=== PATIENT | male | born 1990 | race Caucasian/White ===

== ENCOUNTER 2019-07-16 12:49 | Emergency (ER) | payer SELFPAY ==
[2019-07-16 12:54] VITALS: BP 141/76; PULSE 69; RESP 17; TEMP 37.2; O2SAT 96; BMI 36.5
[2019-07-16] MEDS: tetanus-dipt-pertussis 0.5 mL SDV IM (13:08)
--- NOTE | 2019-07-16 13:17 | W.ED.WOUNDLC ---
HPI - Wound/Laceration General: Chief Complaint: Wound/Laceration Stated Complaint: RIGHT SIDE HAND LAC Time Seen by Provider: 07/16/19 12:50 Source: patient Mode of arrival: ambulatory Limitations: no limitations History of Present Illness: HPI narrative: Patient is a 28-year-old male who presents to ED today with complaints of a laceration on his right wrist. Patient states he cut it on a portion of a vehicle. Unknown when his last tetanus was. Onset (ago): hour(s) Extremity Location: Right: wrist Place: work Patient tetanus UTD: No Context: accidental Associated symptoms: Reports no associated symptoms Review of Systems Musc: Denies: neck pain, back pain, extremity pain or joint pain Skin/Breast: Reports: other (laceration) PFSH ED PFSH: Social History Smoking and tobacco status: current every day smoker Physical Exam Const: COMMON NORMALS: no apparent distress, average body habitus, oriented x3, no limitations, healthy appearing, alert and well nourished Extremity: OTHER: small 1.5cm U shaped laceration on ulnar aspect of R wrist; very shallow; more of a flap laceration; no bleeding; NV intact Neuro: COMMON NORMALS: oriented x3 SENSORIUM/ORIENTATION: Yes alert Skin: OTHER: see extremity assessment Procedures Laceration Laceration 1: Site: upper extremity Side (If applicable): right Size (cm): 1.5 Description: flap Depth: simple, single layer Local Anesthetic: lidocaine 1% and with epi Amount of anesthesia used (mL): 1.0 Pre-repair: wound explored and irrigated extensively Skin layer closed with: nylon Size (cm): 4-0 Number of sutures: 4 Technique: simple, interrupted Course Vital Signs: Vital signs: Vital Signs Temperature 98.9 F 07/16/19 12:54 Pulse Rate 69 07/16/19 12:54 Respiratory Rate 17 07/16/19 12:54 Blood Pressure 141/76 07/16/19 12:54 Pulse Oximetry 96 07/16/19 12:54 Discharge Plan Discharge Patient Disposition: Home, Self-Care Clinical Impression: Laceration Condition: Stable Discharge Orders: Discharge Order (Routine); Ordered 07/16/19 Ordered By: Camila Hernandez Referrals: Meghna Esquivel DO [Primary Care Provider] - Discharge Diet: Usual diet Discharge Activity: Resume usual activity Patient Instructions: Suture Care (ED), Laceration (ED) Activity Restrictions/Additional Instructions: You may return to work. Keep sutures clean with warm soap and water several times daily. Sutures can be cut out in 7 days. Seek medical attention for redness, swelling, drainage, or other signs of infection. Coding Level of Care Code ED Learning Support Resource Room Teacher for Arabella Roach
[2019-07-16 13:59] VITALS: BP 131/76; PULSE 70; RESP 16; O2SAT 96
== END 2019-07-16 13:59 | disposition home or self-care (01) ==
LOC: ER 13:31
PROVIDERS: Emergency Provider Physician Assistant; Family Provider Family Medicine; PCP Family Medicine
DX: S61.511A Laceration without foreign body of right wrist, initial encounter (principal); W26.8XXA Contact with other sharp object(s), not elsewhere classified, initial encounter; F17.210 Nicotine dependence, cigarettes, uncomplicated; Z23 Encounter for immunization
CPT/HCPCS: 12001; 12345; 90471; 90715; 99281; 99282; J2001

== ENCOUNTER 2019-12-07 15:27 | Emergency (ER) | payer SELFPAY ==
[2019-12-07 15:27] VITALS: BP 146/76; PULSE 89; RESP 18; TEMP 36.9; O2SAT 96; BMI 38.0
--- NOTE | 2019-12-07 15:34 | W.ED.EXTPRO ---
HPI - Extremity Problem General: Chief complaint: Extremity Problem,Nontraumatic Stated complaint: right hand finger swelling Time Seen by Provider: 12/07/19 15:33 History of Present Illness: HPI Narrative: Patient is a 28-year-old male who comes to the ED with right middle finger swelling. 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 Ever since then he has had right finger swelling with some pain and a blister. Denies any other trauma or injury to finger. Associated symptoms: Deny chest pain, fever(s) or rash Review of Systems Const: Denies: fever(s), chills or fatigue Eyes: Denies: change in vision or eye discomfort ENMT: Denies: throat pain, odynophagia, nasal discharge or nasal congestion Card: Denies: chest pain, palpitations, edema, swelling of feet/ankles, dyspnea on exertion or orthopnea Resp: Denies: dyspnea, productive cough or non-productive cough GI: Denies: abdominal pain, nausea, vomiting, diarrhea, constipation or hematochezia : Denies: flank pain, difficulty urinating, dysuria or hematuria Musc: Denies: neck pain, back pain or extremity swelling Skin/Breast: Reports: erythema and new lesions (blister); Denies: rash Neuro: Denies: headache(s), numbness in extremities or weakness in extremities PFS ED PFSH: Social History Smoking and tobacco status: current every day smoker Physical Exam Const: COMMON NORMALS: no acute distress, patient oriented x3 and alert GENERAL APPEARANCE: cooperative and comfortable HENMT: COMMON NORMALS: normocephalic HEAD & SCALP: normocephalic MOUTH: Normal oral and palatal mucosa present THROAT: posterior oropharynx normal and uvula midline Neck/C-Spine: COMMON NORMALS: supple GENERAL: Yes normal visual inspection Resp: COMMON NORMALS: normal respiratory effort, No retractions, No use of accessory muscles and clear to auscultation bilaterally AUSCULTATION: clear to auscultation bilaterally Cardio: COMMON NORMALS: regular rate, regular rhythm, S1 normal heart sound present, S2 normal heart sound present, No gallops present (Cardio), No clicks present (Cardio), No murmurs present (Cardio) and Peripheral pulses 2+ throughout RATE: regular rate RHYTHM: regular rhythm HEART SOUNDS: S1 normal heart sound present and S2 normal heart sound present PERIPHERAL PULSES: Peripheral pulses 2+ throughout GI: COMMON NORMALS: Normal to inspection, nondistended, normoactive bowel sounds present, Soft to palpation, non-tender and no masses PALPATION: Yes Soft to palpation : COMMON NORMALS: Yes no CVA tenderness BLADDER/KIDNEY EXAM: Yes no CVA tenderness Back/Pelvis: COMMON NORMALS: no CVA tenderness Extremity: NARRATIVE EXTREMITY EXAM: Patient's right hand middle finger has some erythema and warmth. On the pad of middle finger is a fluid-filled blister that resembles blistering from thermal burn. Patient appears to have a thermal burn on middle finger with some erythema and warmth of the middle finger as well. GENERAL: Yes normal exam except as noted Neuro: COMMON NORMALS: patient oriented x3 and moves all extremities SENSORIUM/ORIENTATION: Yes alert Skin: NARRATIVE SKIN EXAM: Patient's right hand middle finger has some erythema and warmth. On the pad of middle finger is a fluid-filled blister that resembles blistering from thermal burn. Patient appears to have a thermal burn on middle finger with some erythema and warmth of the middle finger as well. GENERAL SKIN EXAM: dry skin Course Vital Signs: Vital signs: Vital Signs Temperature 98.5 F 12/07/19 15:27 Pulse Rate 89 12/07/19 15:27 Respiratory Rate 18 12/07/19 15:27 Blood Pressure 146/76 12/07/19 15:27 Pulse Oximetry 96 12/07/19 15:27 MDM - Extremity (Nontraumatic) MDM Narrative: Medical decision making narrative: Patient is a 28-year-old male comes to the ED with swelling and on right middle finger. 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 Upon examination he has a blister with some erythema and warmth of the middle finger. It appears he has a thermal burn blister with some possible infection starting due to the erythema and warmth throughout his middle finger. Patient was put on a prescription of Bactrim and told to leave the blister alone and to not pop it. Let blister pop naturally. Also they will be put triple antibiotic ointment on the blister and apply it after it pops as well. Return to ED precautions given. Follow-up with PCP in 7 to 10 days. Patient understood and agreed with plan. Discharge Plan Discharge Patient Disposition: Home Clinical Impression: Thermal burn Condition: Stable Prescriptions: New Bactrim DS 800-160 mg tablet 1 tab PO BID 5 Days Qty: 10 RF: 0 Triple Antibiotic 3.5mg-400 unit- 5,000 unit/gram ointment 1 applic TOPICAL BID Qty: 9 RF: 0 Discharge Orders: Discharge Order (Routine); Ordered 12/07/19 Ordered By: Ganesh Byrd Referrals: Meghna Esquivel DO [Primary Care Provider] - Discharge Diet: Regular Discharge Activity: Resume usual activity Patient Instructions: Thermal Reyes Activity Restrictions/Additional Instructions: Follow-up with medical provider as directed in 7-10 days. Take medications as prescribed. Do not pop blister and allow blister to pop on its own. Apply triple antibiotic ointment over blister to prevent infection. Take ibuprofen or Tylenol for pain. Return to the ER or your medical provider if condition worsens. Please read and understand discharge instructions. If any questions, please ask. Coding Level of Care Code ED Marine Resource Economist for Arabella Fwd Exam Comprehensive
[2019-12-07 15:50] VITALS: BP 145/85; PULSE 117; RESP 14; O2SAT 96
== END 2019-12-07 15:51 | disposition home or self-care (01) ==
PROVIDERS: Emergency Provider Physician Assistant; PCP Family Medicine
DX: T23.021A Burn of unspecified degree of single right finger (nail) except thumb, initial encounter (principal); X10.2XXA Contact with fats and cooking oils, initial encounter; F17.210 Nicotine dependence, cigarettes, uncomplicated
CPT/HCPCS: 12345; 99281

== ENCOUNTER 2019-12-09 10:40 | Emergency (ER) | payer SELFPAY ==
[2019-12-09 10:58] VITALS: BP 135/67; PULSE 75; RESP 14; TEMP 36.8; O2SAT 100; BMI 38.0
[2019-12-09] MEDS: HYDROcodone-acetaminophen 5-325 mg Tablet 1 TAB PO (12:44)
[2019-12-09] MEDS: lidocaine 1% INJ 20 mL INTRADERMA (12:44)
[2019-12-09 13:26] VITALS: BP 141/98; PULSE 61; RESP 14; O2SAT 98
--- NOTE | 2019-12-09 13:27 | W.ED.WOUNDLC ---
HPI - Wound/Laceration General: Chief Complaint: Wound/Laceration Stated Complaint: FINGER INFECTION Time Seen by Provider: 12/09/19 12:27 History of Present Illness: HPI narrative: Patient seen previously here in the ER for finger infection that is now worsened. Has swelling to the right middle finger red and tender has not improved but actually worsened not sure what caused infection first place Associated symptoms: Denies chills or fever(s) Review of Systems Const: Denies: fever(s) or chills Musc: Reports: extremity pain (Right middle finger known injury) and extremity swelling Psych: Denies: anxiety or depression PFSH ED PFSH: Social History Smoking and tobacco status: current every day smoker Physical Exam Const: COMMON NORMALS: no acute distress Extremity: RIGHT UPPER EXTREMITY: Yes hand & digits (Right middle finger obviously swollen distal aspect very tender to touch has areas of pus underneath the skin) Psych: COMMON NORMALS: mental status grossly normal Procedures Abscess I/D Site: hand Side (if applicable): right Local Anesthetic: lidocaine 1% Amount of anesthesia used (mL): 2 Technique: incised with #11 blade Amount of fluid expressed (mL): 2 Irrigation: Yes Packing used?: none Complications: pain and other (At first I thought I felt felt a foreign body in there but after cleaning the wound and exploring the wound I did not feel that any more did retrieve a large amount of pus out of the wound patient felt much better 10 procedure) Course Vital Signs: Vital signs: Vital Signs Temperature 98.2 F 12/09/19 10:58 Pulse Rate 61 12/09/19 13:26 Respiratory Rate 14 12/09/19 13:26 Blood Pressure 141/98 12/09/19 13:26 Pulse Oximetry 98 12/09/19 13:26 Discharge Plan Discharge Patient Disposition: Home Clinical Impression: Abscess Condition: Stable Prescriptions: New levofloxacin 500 mg tablet 500 mg PO DAILY 7 Days Qty: 7 RF: 0 hydrocodone-acetaminophen 5-325 mg tablet 1 tab PO Q6H PRN (Reason: pain) Qty: 14 RF: 0 Discontinued sulfamethoxazole-trimethoprim [Bactrim DS] 800-160 mg tablet 1 tab PO BID 5 Days Qty: 10 RF: 0 No Action Triple Antibiotic 3.5mg-400 unit- 5,000 unit/gram ointment 1 applic TOPICAL BID Qty: 9 RF: 0 Discharge Orders: Discharge Order (Routine); Ordered 12/09/19 Ordered By: Jaylen Willson Referrals: Meghna Esquivel DO [Primary Care Provider] - Discharge Diet: Usual diet Discharge Activity: Increase activity as tolerated Patient Instructions: Abscess Incision and Drainage (ED) Activity Restrictions/Additional Instructions: Follow-up with medical provider as directed. Take medications as prescribed. Return to the ER or your medical provider if condition worsens. Please read and understand discharge instructions. If any questions ask please. Stand Alone Forms: Work/School Release Discharge Date/Time: 12/09/19 13:29 Coding Level of Care Code ED Wire Winding Machine Operator for Chg Fwd Exam Expanded Problem Focused
== END 2019-12-09 13:29 | disposition home or self-care (01) ==
PROVIDERS: Emergency Provider Nurse Practitioner Family; PCP Family Medicine
DX: L02.511 Cutaneous abscess of right hand (principal); F17.210 Nicotine dependence, cigarettes, uncomplicated
CPT/HCPCS: 10060; 12345; 26010; 87070; 87077; 87186; 96372; 99282

== ENCOUNTER 2020-02-02 18:37 | Emergency (ER) | payer SELFPAY ==
[2020-02-02 19:08] VITALS: BP 136/77; PULSE 70; RESP 14; TEMP 36.4; O2SAT 98; BMI 31.9
--- NOTE | 2020-02-02 20:54 | ED_ITS ---
HPI - Wound/Laceration General: Chief Complaint: Wound/Laceration Stated Complaint: Cut on Rt hd Time Seen by Provider: 02/02/20 19:31 Source: patient Mode of arrival: ambulatory Limitations: no limitations History of Present Illness: HPI narrative: A 9-year-old male patient presents to the emergency department with laceration to the right index finger. He reports cut his finger with a knife while cooking dinner. Onset (ago): minute(s) (4:30 pm) Place: home Context: accidental Associated symptoms: Denies chills, fever(s), nausea or vomiting Treatments prior to arrival: bandage Review of Systems General: Reports: 10 or more systems reviewed and unremarkable except in HPI and below Const: Denies: fever(s), chills or diaphoresis Eyes: Denies: blurry vision or eye redness ENMT: Denies: throat pain, dental pain or disequilibrium Card: Denies: chest pain, palpitations or irregular heart rhythm Resp: Denies: dyspnea, productive cough, non-productive cough or wheezing GI: Denies: abdominal pain, nausea or vomiting : Denies: dysuria Musc: Denies: back pain Skin/Breast: Reports: other (Laceration right index finger); Denies: rash or pruritus Neuro: Denies: headache(s), weakness in extremities or behavioral changes Psych: Denies: anxiety or depression Alvaro/Lymph: Denies: easy bruising PFSH ED PFSH: Social History Smoking and tobacco status: current every day smoker Physical Exam Const: COMMON NORMALS: no acute distress, patient oriented x3, healthy appearing and alert GENERAL APPEARANCE: cooperative, comfortable and well hydrated HENMT: COMMON NORMALS: normocephalic, Normal external nose present and moist oral mucous membranes HEAD & SCALP: normocephalic NOSE: Normal external nose present Eye: COMMON NORMALS: Equal, round and reactive pupils present and EOMs intact bilaterally GENERAL EYE: appearance normal, both eyes and all related structures PUPIL: Yes Equal, round and reactive pupils present Neck/C-Spine: COMMON NORMALS: full ROM and no lymphadenopathy GENERAL: Yes normal visual inspection and Yes trachea midline CERVICAL SPINE: Yes cervical ROM normal Lymph: LYMPHATIC: no lymphadenopathy noted Chest: COMMONS NORMALS: normal inspection of the chest Resp: COMMON NORMALS: normal respiratory effort and clear to auscultation bilaterally AUSCULTATION: clear to auscultation bilaterally Cardio: COMMON NORMALS: regular rhythm, S1 normal heart sound present and S2 normal heart sound present RHYTHM: regular rhythm HEART SOUNDS: S1 normal heart sound present and S2 normal heart sound present GI: COMMON NORMALS: Soft to palpation and non-tender INSPECTION: Yes normal to inspection PALPATION: Yes Soft to palpation : COMMON NORMALS: Yes no CVA tenderness BLADDER/KIDNEY EXAM: Yes no CVA tenderness Back/Pelvis: COMMON NORMALS: no CVA tenderness and thoracic and lumbar spine normal to inspection Extremity: COMMON NORMALS: normal to inspection, full ROM and capillary refill normal GENERAL: Yes normal exam except as noted Neuro: COMMON NORMALS: patient oriented x3 and no focal motor deficits SENSORIUM/ORIENTATION: Yes alert Psych: COMMON NORMALS: mental status grossly normal, Normal thought process present and cooperative ACTIVITY/MOTOR BEHAVIOR: Yes appropriate eye contact THOUGHT PROCESS: Normal thought process present Skin: COMMON NORMALS: no rashes or lesions noted and turgor normal GENERAL SKIN EXAM: no rashes or lesions noted and turgor normal TRAUMA: laceration (Index finger right, tendon function intact) linear (2 cm), involves subcutaneous tissue, motor nerve function intact and sensation intact; not actively bleeding and not contaminated Procedures Laceration Laceration 1: Site: other (Right index finger) Side (If applicable): right Size (cm): 2 Description: linear and clean Depth: simple, single layer Pre-repair: wound explored, irrigated extensively, deep structures intact and extensive debridement Skin layer closed with: nylon Size (cm): 3-0 Number of sutures: 3 Nerve Block Nerve Block 1: Time out performed: Yes Local Anesthetic: lidocaine 1% Amount of anesthesia used (mL): 5 Side: right Nerve Blocks: digital (Right index finger) Procedure Successful: Yes Patient Tolerated Procedure: well Complications: none Course Vital Signs: Vital signs: Vital Signs Temperature 97.5 F L 02/02/20 19:08 Pulse Rate 67 02/02/20 21:08 Respiratory Rate 16 02/02/20 21:08 Blood Pressure 121/87 02/02/20 21:08 Pulse Oximetry 99 02/02/20 21:08 Discharge Plan Discharge Patient Disposition: Home Clinical Impression: Laceration Condition: Stable Prescriptions: No Action hydrocodone-acetaminophen 5-325 mg tablet 1 tab PO Q6H PRN (Reason: pain) Qty: 14 RF: 0 Triple Antibiotic 3.5mg-400 unit- 5,000 unit/gram ointment 1 applic TOPICAL BID Qty: 9 RF: 0 Discharge Orders: Discharge Order (Routine); Ordered 02/02/20 Ordered By: Ofe Romero Referrals: Meghna Esquivel DO [Primary Care Provider] - Discharge Diet: Usual diet Discharge Activity: Limit activity as instructed Patient Instructions: Suture Care (ED), Laceration (ED) Activity Restrictions/Additional Instructions: Monitor wound for signs and symptoms of infection, keep wound dry for the first 2 to 3 days, may cleanse with soap and water and pat dry, do not submerge in water, do not place wound in lakes or river. Sutures out in 7 days Keep the wound covered while working Return to the emergency department if you develop increased pain, fever, red streaking from the wound or other concerning symptoms of infection Stand Alone Forms: Work/School Release Coding Level of Care Code ED Event Specialist Product Demonstrator for Arabella Fwtoby Exam Comprehensive
[2020-02-02 21:08] VITALS: BP 121/87; PULSE 67; RESP 16; O2SAT 99
== END 2020-02-02 21:09 | disposition home or self-care (01) ==
PROVIDERS: Emergency Provider Nurse Practitioner Family; PCP Family Medicine
DX: S61.220A Laceration with foreign body of right index finger without damage to nail, initial encounter (principal); W26.0XXA Contact with knife, initial encounter; Y93.G3 Activity, cooking and baking
CPT/HCPCS: 12041; 12345; 99281

== ENCOUNTER 2020-03-22 22:03 | Inpatient (IN) | payer SELFPAY ==
[2020-03-22 22:09] VITALS: BP 161/93; PULSE 75; RESP 18; TEMP 36.7; O2SAT 96; BMI 25.8
--- NOTE | 2020-03-22 22:22 | W.ED.PSYCH ---
HPI - Psych General: Chief Complaint: Psychiatric Symptoms Stated Complaint: mhe/96 Time Seen by Provider: 03/22/20 22:07 Source: patient Mode of arrival: ambulatory Limitations: no limitations History of Present Illness: HPI Narrative: 29-year-old male that was brought here by family for hallucinations history of bipolar and depression. He had stated to them that he no longer wants to live. Patient has been just laying around over the last 10 days and will hardly eat or she. He states that he does have a history of bipolar and has not been taking his meds. Patient here is very flat affect and tearful. He will hardly speak to me after asking multiple questions. Associated symptoms: Reports visual hallucinations and depression Review of Systems Const: Denies: fever(s), chills, body aches or change in appetite Eyes: Denies: blurry vision or eye discomfort ENMT: Denies: throat pain or dental pain Card: Denies: chest pain Resp: Denies: dyspnea GI: Denies: abdominal pain, nausea, vomiting or diarrhea : Denies: dysuria Musc: Denies: neck pain or back pain Skin/Breast: Denies: rash Neuro: Denies: headache(s) Psych: Reports: depression and visual hallucinations Alvaro/Lymph: Denies: easy bruising All/Imm: Denies: urticaria PFSH ED PFSH: Social History Smoking and tobacco status: current every day smoker Physical Exam Const: COMMON NORMALS: patient oriented x3 GENERAL APPEARANCE: not cooperative HENMT: COMMON NORMALS: normocephalic and atraumatic HEAD & SCALP: normocephalic and atraumatic Eye: COMMON NORMALS: Equal, round and reactive pupils present and EOMs intact bilaterally PUPIL: Yes Equal, round and reactive pupils present Neck/C-Spine: COMMON NORMALS: full ROM and supple Chest: COMMONS NORMALS: normal inspection of the chest and normal palpation of entire chest wall Resp: COMMON NORMALS: normal respiratory effort, No retractions, No use of accessory muscles and clear to auscultation bilaterally AUSCULTATION: clear to auscultation bilaterally Cardio: COMMON NORMALS: regular rate, regular rhythm and No murmurs present (Cardio) RATE: regular rate RHYTHM: regular rhythm GI: COMMON NORMALS: Normal to inspection, nondistended, normoactive bowel sounds present, Soft to palpation, non-tender and no masses PALPATION: Yes Soft to palpation Extremity: COMMON NORMALS: normal to inspection and full ROM Neuro: COMMON NORMALS: patient oriented x3, moves all extremities and no focal motor deficits Psych: COMMON NORMALS: negative for cooperative ACTIVITY/MOTOR BEHAVIOR: Yes disorganized behavior MOOD & AFFECT: Yes depressed mood and Yes tearful Skin: COMMON NORMALS: no rashes or lesions noted and no wounds GENERAL SKIN EXAM: no rashes or lesions noted MDM - Psych MDM Narrative: Medical decision making narrative: Bryant presents here with acute psychosis along with depression. He had made some suicidal statements. Here he has a very flat affect and does not give me much history at all. Family states he has been saying he wants to anything he has been hearing things. He does have a history of bipolar has not been taking his meds. I placed him under 96 as I feel he is not safe on his own and will admit to the psych unit. Patient is medically cleared and I spoke to the psychiatrist. Lab Data: Labs: Lab Results 03/22/20 03/22/20 03/22/20 Range/Units 22:20 22:30 22:30 WBC 17.8 H (4.0-10.0) 10^3/ uL RBC 5.88 H (4.1-5.3) 10^6/u L Hgb 17.8 H (11.7-16.6) g/dL Hct 52.6 H (42.0-52.0) % MCV 89.5 (80-94) fL MCH 30.3 (28.0-34.0) pg MCHC 33.8 (30.0-36.0) g/dL RDW 12.5 (12.1-15.1) % Plt Count 254 (130-400) 10^3/c mm MPV 12.1 H (7.4-10.4) fL Neut % (Auto) 75.5 % Lymph % (Auto) 17.5 % Harvey % (Auto) 5.3 % Eos % (Auto) 0.9 % Baso % (Auto) 0.4 % Neut # (Auto) 13.43 H (1.8-7.7) 10^3/u L Lymph # (Auto) 3.1 (0.8-4.8) 10^3/u L Harvey # (Auto) 1.0 H (0.2-0.9) 10^3/u L Eos # (Auto) 0.2 (0.0-0.8) 10^3/u L Baso # (Auto) 0.1 (0.0-0.1) 10^3/u L Nucleated RBC % (a uto) 0 % Nucleated RBCs # 0.0 /100WBC Sodium 140 (136-145) mmol/L Potassium 3.3 L (3.5-5.1) mmol/L Chloride 101 (98-107) mmol/L Carbon Dioxide 25 (22-29) mmol/L Anion Gap 17.3 (5-19) BUN 13 (6-20) mg/dL Creatinine 0.7 (0.7-1.2) mg/dL GFR Calculation 135.3 H (90-130) mL/min Glucose 101 (65-115) mg/dL Calculated Osmolal ity 290 (285-295) mOsm/k g Calcium 10.0 (8.5-10.5) mg/dL Total Bilirubin 1.4 H (0.15-1.2) mg/dL AST 11 (0-40) U/L ALT 18 (0-41) U/L Alkaline Phosphata se 81 (40-130) IU/L Total Protein 7.9 (6.6-8.7) g/dL Albumin 4.8 (3.5-5.2) g/dL Globulin 3.1 (1.3-4.6) g/dL Salicylates < 0.3 L (3-10) mg/dL Urine Opiates Scre en Negative (Negative) ng/mL Acetaminophen < 5.0 L (10-30) ug/mL Ur Barbiturates Sc reen Negative (Negative) ng/mL Ur Phencyclidine S crn Negative (Negative) ng/mL Ur Amphetamines Sc reen Negative (Negative) ng/mL U Benzodiazepines Scrn Negative (Negative) ng/mL Urine Cocaine Scre en Negative (Negative) ng/mL U Marijuana (THC) Screen Positive H (Negative) ng/mL Ethyl Alcohol < 10 (0-10) mg/dL Discharge Plan Discharge Patient Disposition: Admitted As Inpatient Clinical Impression: Depression, Acute psychosis Condition: Stable Coding Level of Care Code ED Arch Support Technician for g Fwd Exam Comprehensive
[2020-03-22] MEDS: LORazepam 2 mg Tablet PO (22:26)
[2020-03-22 22:44] LABS: Basophils # 0.1 10^3/uL (0.0-0.1); Basophils % 0.4 %; Eosinophils # 0.2 10^3/uL (0.0-0.8); Eosinophils % 0.9 %; Hematocrit 52.6 % (42.0-52.0); Hemoglobin 17.8 g/dL (11.7-16.6); Lymphocytes # 3.1 10^3/uL (0.8-4.8); Lymphocytes % 17.5 %; Mean Corpuscular HGB Conc 33.8 g/dL (30.0-36.0); Mean Corpuscular Hemoglobin 30.3 pg (28.0-34.0); Mean Corpuscular Volume 89.5 fL (80-94); Mean Platelet Volume 12.1 fL (7.4-10.4); Monocytes % 5.3 %; Neutrophils # 13.43 10^3/uL (1.8-7.7); Neutrophils % 75.5 %; Nucleated Red Blood Cells % 0 %; Platelet Count 254 10^3/cmm (130-400); Red Blood Count 5.88 10^6/uL (4.1-5.3); Red Cell Distribution Width 12.5 % (12.1-15.1); White Blood Count 17.8 10^3/uL (4.0-10.0)
[2020-03-22 22:46] LABS: Amphetamines Screen Urine Negative (Negative); Barbiturates Screen Urine Negative (Negative); Benzodiazepines Screen Urine Negative (Negative); Cocaine Screen Urine Negative (Negative); Opiate Screen Urine Negative (Negative); PCP Screen Urine Negative (Negative); THC Screen Urine Positive (Negative)
[2020-03-22 22:59] LABS: Alanine Aminotransferase 18 U/L (0-41); Albumin Level 4.8 g/dL (3.5-5.2); Alkaline Phosphatase 81 IU/L (40-130); Anion Gap 17.3 (5-19); Aspartate Amino Transferase 11 U/L (0-40); Blood Urea Nitrogen 13 mg/dL (6-20); Carbon Dioxide 25 mmol/L (22-29); Chloride 101 mmol/L (98-107); Globulin 3.1 g/dL (1.3-4.6); Glomerular Filtration Rate 135.3 mL/min (90-130); Glucose 101 mg/dL (65-115); Osmolality Calculated 290 mOsm/kg (285-295); Potassium 3.3 mmol/L (3.5-5.1); Sodium 140 mmol/L (136-145); Total Bilirubin 1.4 mg/dL (0.15-1.2); Total Protein 7.9 g/dL (6.6-8.7)
[2020-03-22 23:02] LABS: Acetaminophen < 5.0 ug/mL (10-30); Alcohol Level < 10 mg/dL (0-10); Salicylate < 0.3 mg/dL (3-10)
[2020-03-22 23:34] VITALS: BP 141/90; PULSE 86; RESP 16; TEMP 36.7; O2SAT 97
[2020-03-22 23:38] LABS: Blood Urine Neg (Negative); Glucose Urine UA Norm (Normal); Ketones Urine 1+ (Negative); Protein Urine Neg (Negative); Specific Gravity, Urine 1.015 (1.005-1.030); Urine Appearance Clear (CLEAR); Urine Color Dark Yellow (Yellow)
[2020-03-22 23:39] LABS: Add Urine Microscopic? YES; Bacteria Urine TRACE /hpf; Bilirubin Urine Neg (Negative); Leukocyte Esterase Urine Negative (Negative); Nitrate Urine Negative (Negative); Squamous Epithelial Cell Urine 0-4 /hpf (0-5); Urobilinogen Urine 4 mg/dL (Negative)
[2020-03-22 23:40] LABS: Add Urine Culture? No; Mucus Urine 4+ /hpf
[2020-03-22 23:41] VITALS: BP 118/78; PULSE 80; RESP 18; TEMP 37.2; O2SAT 98
[2020-03-23 05:48] VITALS: BP 108/56; PULSE 77; RESP 18; TEMP 37.1; O2SAT 95
[2020-03-23 14:00] VITALS: BP 129/73; PULSE 83; RESP 20; TEMP 37; O2SAT 92
--- NOTE | 2020-03-23 18:40 | PM.NHP ---
Providers/Chief Complaint Admitting Physician: Sai Miranda MD Primary Care Provider: Meghna Esquivel DO Chief Complaint: mhe/poss 96 HPI NPU History of Present Illness Bryant Ramos is a 29 year old male who presented to the emergency department with the following report: Chief Complaint: Psychiatric Symptoms Stated Complaint: mhe/96 Time Seen by Provider: 03/22/20 22:07 Source: patient Mode of arrival: ambulatory Limitations: no limitations History of Present Illness: HPI Narrative: 29-year-old male that was brought here by family for hallucinations history of bipolar and depression. He had stated to them that he no longer wants to live. Patient has been just laying around over the last 10 days and will hardly eat or she. He states that he does have a history of bipolar and has not been taking his meds. Patient here is very flat affect and tearful. He will hardly speak to me after asking multiple questions. Associated symptoms: Reports visual hallucinations and depression. He was admitted to the neuropsychiatric unit for definitive treatment of those issues. He presented today as a fairly limited historian reflecting back on his previous hospitalization endorsing that not much is changed.. 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 He was resistant to the idea of medication. And could not recall the medication that he had been on. We discussed the risk benefits and alternatives of him restarting an antipsychotic and he understood and agreed to proceed as is documented in this note. We reported was that previously on what ever he was taking which he could not recall he gained weight and did not feel that was extremely effective. We discussed the possibility of Rashmi and Mal in consideration of greater weight neutrality but also discussed Invega because like Rashmi he would have the opportunity to have an injection and not have to worry about choosing to take or not take the medication. He endorsed struggling with social settings but was not clear as to whether he felt he could get another job at this point. We discussed the fact that if he was wanting to be a cook that the job opportunities for [facility] [employer] certainly has limitations. An excerpt of his February 09, 2017 hospitalization is included for historical context. [place] [facility] [place] History of Present Illness Date of Service: Feb 09, 2017 Chief Complaint: I actually just came back from [facility]. I got out of [facility]. HPI: HPI: The patient is a 26-year-old male admitted for psychosis on a 96 hour hold. Patient's family reported that he has been employed at [employer] but found working at [employer] and has been asked to leave from that establishment. He has been talking on a broken cell phone and making statements about going back in time. He has been showering with his clothing on and wrapping of various household items and T-shirts giving them to his family as Tee gifts. Family reported that they have been watching him and do not feel he has been using any drugs. The patient was confused and bizarre in the ER requesting to be cut open and stating that he wanted to donate his organs to his mother. He was given a B-52 for agitation. Since admission the patient has continued to be bizarre doing high kicks/karate kicks and jumps in the hallway and stretching his legs on the nursing station ledge. The patient has poor insight into his behaviors and reports that he is in the hospital because I have a flesh wound on the back of my knee and reports that he has been exercising to get blood flow back. This provider examine the back of his knee which appears to be normal with no signs of wound or infection. The patient reports also that he recently broke up with his fiancee which has been stressful and has moved back in with his parents. He reports that they want him to get help for anger management . The patient appears euthymic to happy and denies feeling angry or having any aggressive thoughts or behaviors however. Psychiatric review of systems: Reports mood has been lively, pretty happy. Denies depression/ anhedonia/ SI. Denies HI. Denies hallucinations/ paranoia. He does endorse some somatic hypervigilance/delusions and states that he is pretty sure I had stomach ulcers and also feels that he needs surgery to have his appendix and gallbladder checked out. He does not know why. He also reports that his eyes are very sensitive to light and that he is having hearing problems. He does not have any apparent hearing issues during the interview however. He reports that he has been sleeping and eating ok. He denies any irritability/risky behaviors/decreased need for sleep. He has set some increased goal-directed activity and distractibility. He does not have any pressured speech. He denies any significant anxiety. Past psychiatric history: Denies past psychiatrist/ psych admission/ past meds/SA. Past medical history: reports hearing problems and eyes sensitive to light but these are not apparent. Reports possible hx seizures while using meth. Denies history of head injuries or surgeries. Family history: Mother- mental illness? Social history: Single, employed FT at [employer] and lives with parents. Has 3 children who live in [facility] with ex-GF. Pt reports past meth last 3.5 months, past injection use. Denies other drugs. Denies bath salts. alcohol- denies. Smokes 1PPD. On probation for domestic assault. Dropped out 11th grade, denies LD/ BD. Meds NPU Home Medications Medication Instructions Recorded Confirmed Last Taken Type No Known Home Medications 03/23/20 03/23/20 Unknown History Allergies Allergy/AdvReac Type Severity Reaction Status Date / Time No Known Allergies Allergy Verified 07/16/19 12:54 PFSH NPU PFSH: Social History Smoking and tobacco status: current every day smoker Mental Status Exam MSE Comments: This is a well-nourished well-developed white male in hospital scrubs with limited grooming and eye contact. No abnormal movements except for psychomotor retardation. Semicooperative with exam in mild to moderate distress. Speech was limited and decreased rate and volume. Mood described as depressed, affect odd. Thought process mostly organized with some significant thought blocking. Thought content: Patient was seemingly ambivalent about suicidality but probably said no, he denied homicidal ideation, there were no delusions reported but significant paranoia noted, he denies any auditory or visual hallucinations but again hedged took a long time answering that question and at times did appear to be attending to internal stimuli. Attention and concentration were limited and memory was also somewhat limited but none were formally tested. He is alert and oriented x3. Insight and judgment are limited and impulse control is impaired. Vitals/I&O/Wt Last Vital Signs Temp 98.8 F 03/23/20 22:00 Pulse 70 03/23/20 22:00 Resp 15 03/23/20 22:00 BP 143/74 03/23/20 22:00 Pulse Ox 94 03/23/20 22:00 Weight last 48 hrs Weight 77.111 kg Data NPU : 03/22/20 22:30 03/22/20 22:30 A&P Assessment and plan (1) Cannabis abuse: Status: Acute (2) Depression: Status: Acute (3) Acute psychosis: Status: Acute Additional A&P Information This is a 29-year-old white male with a long history of psychotic symptoms as well as depression and active addiction with some question of recent methamphetamine use who presents with thought disorder. 1. Continue current medication. We will review his charts try to make a decision between the possible antipsychotics given his concerns and past use of Risperdal. 2. Continue to the minute checks for safety. 3. Encourage individual, group and milieu therapies. 4. Encourage sober living treatment after discharge at the highest level of care to which he is willing to commit. Involuntary Hold Information 96 Hour Hold: 96 Hour Involuntary Admission: Yes 96 Hour Hold Ending Date: 03/26/20 96 Hour Hold Ending Time: 22:34 Attestations NPU Medical Necessity Statement*: Inpatient hospitalization is medically necessary and the clinically appropriate intervention at this time. We will monitor medications and make changes as indicated. Patient will be in the hospital for overnight. Likely length of stay 3 to 5 days. Coding Level of Care Code Acute Files Supervisor for Arabella Roach Diagnoses Cannabis abuse F12.10 Depression F32.9 Acute psychosis F23
[2020-03-23 22:00] VITALS: BP 143/74; PULSE 70; RESP 15; TEMP 37.1; O2SAT 94
[2020-03-24 06:00] VITALS: BP 128/73; PULSE 83; RESP 19; TEMP 36.6; O2SAT 97
--- NOTE | 2020-03-24 11:10 | PC.RESP ---
Smoking Cessation information sent to patient.
[2020-03-24] MEDS: ARIPiprazole 10 mg Tablet PO (13:07)
[2020-03-24 14:00] VITALS: BP 131/75; PULSE 72; RESP 18; TEMP 36.7; O2SAT 97
--- NOTE | 2020-03-24 17:51 | PM.NPN ---
Subjective NPU Subjective: Interval history: Bryant presents today reporting that he is unsure what he wants to do. His presentation was quite odd as his initial statement to this scientific technical writer was that he did not want me wasting my time. When I sat down to try to get at the heart of what his concerns were he does a lot of rocking and appearing like he was going to say something but said very few words with clearly distressed but nothing that was raised elicited a response to give any clear indication as to what he was suffering about or from. He gave indication that he really did not want to take the Abilify but could not give me any articulation of why the Abilify did not suit him especially given only 1 dose at this point. I reviewed that Invega and Geodon with both be viable options we discussed the possibility of holding his dose tomorrow and changing the medication but he really could not see the rest of we have allowed us to have a clear sense of how we should proceed. Mental Status Exam MSE Comments: This is a well-nourished well-developed white male in hospital scrubs with limited grooming and eye contact. No abnormal movements except for psychomotor retardation. Semicooperative with exam in mild to moderate distress. Speech was limited and decreased rate and volume. Mood described as you should not waste her time with me, affect odd. Thought process mostly organized with some significant thought blocking. Thought content: Patient did not answer questions about suicidality, he denied homicidal ideation, there were no delusions reported but significant paranoia noted, he denies any auditory or visual hallucinations but again hedged took a long time answering that question and at times did appear to be attending to internal stimuli. Attention and concentration were limited and memory was also somewhat limited but none were formally tested. He is alert and oriented x3. Insight and judgment are impaired and impulse control is impaired. Vitals/I&O/Wt Last Vital Signs Temp 98.8 F 03/24/20 20:13 Pulse 82 03/24/20 20:13 Resp 17 03/24/20 20:13 BP 154/83 03/24/20 20:13 Pulse Ox 94 03/24/20 20:13 Data NPU : 03/22/20 22:30 03/22/20 22:30 A&P Additional A&P Information (1) Cannabis abuse: (2) Depression: (3) Acute psychosis: This is a 29-year-old white male with a long history of psychotic symptoms as well as depression and active addiction with some question of recent methamphetamine use who presents with thought disorder. 1. Continue current medication. We started Abilify today, however he seems to be expressing that he does not want to take it for some reason but his inability to have clear expression makes the decision a little more challenging. We will hold the morning dose and speak to him before administration to see if he would prefer something different and try to identify the reason for his reticence to take the medication. 2. Continue to the minute checks for safety. 3. Encourage individual, group and milieu therapies. 4. Encourage sober living treatment after discharge at the highest level of care to which he is willing to commit. Involuntary Hold Information 96 Hour Hold: 96 Hour Involuntary Admission: Yes 96 Hour Hold Ending Date: 03/26/20 96 Hour Hold Ending Time: 22:34 Attestations NPU Medical Necessity Statement*: Inpatient hospitalization is medically necessary and the clinically appropriate intervention at this time. We will monitor medications and make changes as indicated. Likely length of stay 2-4 is days. Coding Level of Care Code Acute Notched Blade Loader for Arabella Roach
[2020-03-24 20:13] VITALS: BP 154/83; PULSE 82; RESP 17; TEMP 37.1; O2SAT 94
[2020-03-25 05:59] VITALS: BP 137/88; PULSE 89; RESP 18; TEMP 37.8; O2SAT 97
[2020-03-25] MEDS: ARIPiprazole 10 mg Tablet PO (08:23)
[2020-03-25 14:00] VITALS: BP 103/72; PULSE 98; RESP 18; TEMP 36.1; O2SAT 95
--- NOTE | 2020-03-25 18:51 | P.PN_ITS ---
Subjective NPU Subjective: Interval history: Bryant presented today continuing to be somewhat reticent to speak which it was unclear whether this was resistance or thought blocking or a little bit of both. Continue to connect with his significant other as she expresses extreme concern about him coming home and reporting that he had close to 2 weeks of significant change in energy level not eating bathing or sleeping well. Discussed the possibility of an 21-day hold with him. He continues to isolate and sleep a considerable bit per staff. Mental Status Exam MSE Comments: This is a well-nourished well-developed white male in hospital scrubs with limited grooming and eye contact. No abnormal movements except for psychomotor retardation. Semicooperative with exam in mild to moderate distres s. Speech was limited and decreased rate and volume. Mood described as fine, affect odd. Thought process mostly organized with some significant thought blocking. Thought content: Patient did not answer questions about suicidality, he denied homicidal ideation, there were no delusions reported but significant paranoia noted, he denies any auditory or visual hallucinations but again hedged took a long time answering that question and at times did appear to be attending to internal stimuli. Attention and concentration were limited and memory was also somewhat limited but none were formally tested. He is alert and oriented x3. Insight and judgment are impaired and impulse control is impaired. Vitals/I&O/Wt Last Vital Signs Temp 98.1 F 03/25/20 20:10 Pulse 76 03/25/20 20:10 Resp 19 H 03/25/20 20:10 BP 127/75 03/25/20 20:10 Pulse Ox 96 03/25/20 20:10 Data NPU : 03/22/20 22:30 03/22/20 22:30 A&P Additional A&P Information (1) Cannabis abuse: (2) Depression: (3) Acute psychosis: This is a 29-year-old white male with a long history of psychotic symptoms as well as depression and active addiction with some question of recent methamphetamine use who presents with thought disorder. 1. Continue current medication. 2. Continue to the minute checks for safety. 3. Encourage individual, group and milieu therapies. 4. Encourage sober living treatment after discharge at the highest level of care to which he is willing to commit. Involuntary Hold Information 2 96 Hour Hold: 96 Hour Involuntary Admission: Yes 96 Hour Hold Ending Date: 03/26/20 96 Hour Hold Ending Time: 22:34 Attestations NPU Medical Necessity Statement*: Inpatient hospitalization is medically necessary and the clinically appropriate intervention at this time. We will monitor medications and make changes as indicated. Likely length of stay 3-5days. Coding Level of Care Code Acute Applications Development Consultant for Arabella Roach
[2020-03-25 20:10] VITALS: BP 127/75; PULSE 76; RESP 19; TEMP 36.7; O2SAT 96
[2020-03-26 06:00] VITALS: BP 131/82; PULSE 71; RESP 16; TEMP 37.3; O2SAT 97
[2020-03-26] MEDS: ARIPiprazole 10 mg Tablet PO (08:28)
[2020-03-26 14:00] VITALS: BP 109/65; PULSE 86; RESP 18; TEMP 36.2; O2SAT 97
--- NOTE | 2020-03-26 19:25 | P.PN_ITS ---
Subjective NPU Subjective: Interval history: Bryant presents today continuing his pattern of left connection and speaking and seeming to be irritable or angry but not articulating his thoughts with words. We discussed the possibility of adding Geodon or changing over to Geodon including the risks, benefits and alternatives and he understood and continued to be fairly nonfocal. I advised him that I would make it available tomorrow and he could choose at that time whether he thought it was a good idea or not. Mental Status Exam MSE Comments: This is a well-nourished well-developed white male in hospital scrubs with limited grooming and eye contact. No abnormal movements except for psychomotor retardation. Semicooperative with exam in mild to moderate distress. Speech was limited and decreased rate and volume. Mood described as i can go home, affect odd. Thought process mostly organized with some significant thought blocking. Thought content: Patient did not answer questions about suicidality, he denied homicidal ideation, there were no delusions reported but significant paranoia noted, he denies any auditory or visual hallucinations but again hedged took a long time answering that question and at times did appear to be attending to internal stimuli. Attention and concentrati on were limited and memory was also somewhat limited but none were formally tested. He is alert and oriented x3. Insight and judgment are impaired and impulse control is impaired. Vitals/I&O/Wt Last Vital Signs Temp 97.1 F L 03/26/20 14:00 Pulse 86 03/26/20 14:00 Resp 18 03/26/20 14:00 BP 109/65 03/26/20 14:00 Pulse Ox 97 03/26/20 14:00 Data NPU : 03/22/20 22:30 03/22/20 22:30 A&P Additional A&P Information (1) Cannabis abuse: (2) Depression: (3) Acute psychosis: This is a 29-year-old white male with a long history of psychotic symptoms as well as depression and active addiction with some question of recent methamphe tamine use who presents with thought disorder. 1. Continue current medication. Will offer Geodon 20 mg p.o. twice daily with meals tomorrow. 2. Continue to the minute checks for safety. 3. Encourage individual, group and milieu therapies. 4. Encourage sober living treatment after discharge at the highest level of care to which he is willing to commit. Involuntary Hold Information 96 Hour Hold: 96 Hour Involuntary Admission: Yes 96 Hour Hold Ending Date: 03/26/20 96 Hour Hold Ending Time: 22:34 Attestations NPU Medical Necessity Statement*: Inpatient hospitalization is medically necessary and the clinically appropriate intervention at this time. We will monitor medications and make changes as indicated. Likely length of stay 3-5 days. Follow 21-day paperwork today and advise patient of that plan. Coding Level of Care Code Acute Pulp Press Tender for Arabella Roach
[2020-03-26 19:51] VITALS: BP 136/72; PULSE 86; RESP 19; TEMP 37.5; O2SAT 94
--- NOTE | 2020-03-26 21:45 | PC.NURSE ---
PM assessment V/s stable, Heart and lung sounds normal. Pt denies AH/VH/SI/HI. Pt Denies pain. Pt reports sleep that is not restful, racing thoughts, and panic feelings. Pt refuses to take medications for sleep and increased anxiety at this time. He did come out of his room to get a glass of water, a journal, and bible to read. He was more interactive with nurse this evening and spoke to family on the phone today.
[2020-03-27 06:00] VITALS: BP 111/74; PULSE 70; RESP 17; TEMP 36.9; O2SAT 97
[2020-03-27] MEDS: ARIPiprazole 10 mg Tablet PO (08:21)
--- NOTE | 2020-03-27 12:31 | P.PN_ITS ---
Subjective NPU Subjective: Interval history: Bryant continues to struggle with his ability to communicate and his desire to stay. He continues to be seemingly only capable of endorsing a desire to leave but not really be able to talk about the medication or how they are having or what he does not like one versus the other. We discussed the risk benefits and alternatives of starting Geodon and he understood and accepted its initiation but again could not really get into a real conversation in general but he appeared to understand and agreed to proceed as is documented in this note. Mental Status Exam MSE Comments: This is a well-nourished well-developed white male in hospital scrubs with limited grooming and eye contact. No abnormal movements except for psychomotor retardation. Semicooperative with exam in mild to moderate distress. Speech was limited and decreased rate and volume. Mood described as I feel worse here, affect odd. Thought process mostly organized with some significant thought blocking. Thought content: Patient did not answer questions about suicidality, but did report I will be fine , he denied homicidal ideation, there were no delusions reported but significant paranoia noted, he denies any auditory or visual hallucinations but again hedged took a long time answering that question and at times did appear to be attending to internal stimuli. Attention and concentration were limited and memory was also somewhat limited but none were formally tested. He is alert and oriented x3. Insight and judgment are impaired and impulse control is impaired. Vitals/I&O/Wt Last Vital Signs Temp 98.4 F 03/27/20 06:00 Pulse 70 03/27/20 06:00 Resp 17 03/27/20 06:00 BP 111/74 03/27/20 06:00 Pulse Ox 97 03/27/20 06:00 Data NPU : 03/22/20 22:30 03/22/20 22:30 A&P Additional A&P Information (1) Cannabis abuse: (2) Depression: (3) Acute psychosis: This is a 29-year-old white male with a long history of psychotic symptoms as well as depression and active addiction with some question of recent methamphetamine use who presents with thought disorder. 1. Continue current medication. Started Geodon 20 mg p.o. twice daily with meals. We will consider discontinuing of the Abilify tomorrow. 2. Continue to the minute checks for safety. 3. Encourage individual, group and milieu therapies. 4. Encourage sober living treatment after discharge at the highest level of care to which he is willing to commit. Involuntary Hold Information 96 Hour Hold: 96 Hour Involuntary Admission: Yes 96 Hour Hold Ending Date: 03/26/20 96 Hour Hold Ending Time: 22:34 Attestations NPU Medical Necessity Statement*: Inpatient hospitalization is medically necessary and the clinically appropriate intervention at this time. We will monitor medications and make changes as indicated. Likely length of stay 4-6 days. 21- day paperwork was filed. Coding Level of Care Code Acute Community Health Coordinator for Arabella Roach
[2020-03-27] MEDS: ziprasidone hcl 20 mg Capsule PO ×2 (13:20→17:21)
[2020-03-27 14:00] VITALS: BP 112/76; PULSE 82; RESP 18; TEMP 36.8
[2020-03-27 20:11] VITALS: BP 126/81; PULSE 94; RESP 18; TEMP 36.9; O2SAT 95
--- NOTE | 2020-03-27 21:43 | PC.NURSE ---
PM ASSESSMENT PT DENIES HI/SI, DENIES AH/VH. REPORTS INCREASING STIFFNESS IN HIS BACK. PT HAS ISOLATED SELF TO HIS BED AND REFUSES TO INTERACT WITH OTHER PATIENTS. PT STATED THAT HE HAS HAD A GOOD DAY BUT IS NOT RESTING WHEN HE SLEEPS. PT HEART/LUNG SOUNDS ARE NORMAL.PT FOLLOWED NURSE TO NURSES STATION FOR WATER. HE IS QUIET AND COOPERATIVE WITH STAFF. PT ASKS/ANSWERS QUESTIONS APPROPRIATELY. PT'S FIANCE IS CONCERNED THAT MEDICATION IS NOT WORKING FAST ENOUGH AND HIS NEEDS ARE NOT BEING MET. SHE IS VERY INVESTED IN HIS MENTAL HEALTH AND IS NOT COPING WELL WITH HIM IN THIS UNIT. PT IS EXPERIENCING PANIC, FEELINGS OF FEAR, AND ANGER. HE IS NOT RESTING ALTHOUGH HE IS SLEEPING.
[2020-03-27 23:31] VITALS: BP 150/100; PULSE 75; RESP 17; TEMP 37.9; O2SAT 100
[2020-03-28 05:48] VITALS: BMI 25.8
[2020-03-28 06:00] VITALS: BP 152/62; PULSE 75; RESP 17; TEMP 36.4; O2SAT 96
--- NOTE | 2020-03-28 06:24 | PC.NURSE ---
Increased B/P Pt has had increase of blood pressure. Last night @2200 pt T was 100.2 and BP 150/100, RR 17. This morning @0600 pt has a more normal T of 97.5 but the blood pressure remains elevated at 152/62 in sitting position. Pt significant other called and is concerned as this is a new condition for this patient. Will continue
[2020-03-28] MEDS: ziprasidone hcl 20 mg Capsule PO (06:47)
[2020-03-28] MEDS: ARIPiprazole 10 mg Tablet PO (08:38)
[2020-03-28 14:00] VITALS: BP 143/80; PULSE 108; RESP 18; TEMP 36.7; O2SAT 96
--- NOTE | 2020-03-28 18:05 | PC.NURSE ---
CHANCE [PT REFUSED 1700 CHANCE.
[2020-03-28 19:48] VITALS: BP 127/75; PULSE 83; RESP 18; TEMP 36.7; O2SAT 97
--- NOTE | 2020-03-28 19:56 | P.PN_ITS ---
Subjective NPU Subjective: Interval history: Bryant presents today continuing to report that he does not like medication being prescribed to him. Today however he is being a little more communicative and less thought blocking but thought continue. He still is unable to articulate any strategy that he can embrace that will change his circumstance just is suggesting that it will be different almost magically because he wants it to be. We did agree to discontinue the Abilify and allow Mal to stand this is only medication. Current difficulty is he is not participating in what might help or what we can do he is only positioning himself as antimedication which seems to hold a very low level of success Mental Status Exam MSE Comments: This is a well-nourished well-developed white male in hospital scrubs with limited grooming and eye contact. No abnormal movements except for psychomotor retardation. Semicooperative with exam in mild to moderate distress. Speech was slightly more spontaneous and decreased rate and volume. Mood described as I feel worse here, affect odd. Thought process mostly organized with some slight improvement in thought blocking. Thought content: Patient did not answer questions about suicidality, but did report I will be fine , he denied homicidal ideation, there were no delusions reported but significant paranoia noted, he denies any auditory or visual hallucinations but again hedged took a long time answering that question and at times did appear to be attending to internal stimuli. Attention and concentration were limited and memory was also somewhat limited but none were formally tested. He is alert and oriented x3. Insight and judgment are impaired and impulse control is impaired. Vitals/I&O/Wt Last Vital Signs Temp 98.1 F 03/28/20 19:48 Pulse 83 03/28/20 19:48 Resp 18 03/28/20 19:48 BP 127/75 03/28/20 19:48 Pulse Ox 97 03/28/20 19:48 Weight last 48 hrs Weight 77.111 kg Data NPU : 03/22/20 22:30 03/22/20 22:30 A&P Additional A&P Information (1) Cannabis abuse: (2) Depression: (3) Acute psychosis: This is a 29-year-old white male with a long history of psychotic symptoms as well as depression and active addiction with some question of recent methamphetamine use who presents with thought disorder. 1. Continue current medication. Discontinue Abilify. 2. Continue to the minute checks for safety. 3. Encourage individual, group and milieu therapies. 4. Encourage sober living treatment after discharge at the highest level of care to which he is willing to commit. Involuntary Hold Information 96 Hour Hold: 96 Hour Involuntary Admission: Yes 96 Hour Hold Ending Date: 03/26/20 96 Hour Hold Ending Time: 22:34 Attestations NPU Medical Necessity Statement*: Inpatient hospitalization is medically necessary and the clinically appropriate intervention at this time. We will monitor medications and make changes as indicated. Likely length of stay 4-6 days. Await 21-day hold hearing. Coding Level of Care Code Acute Career Development Counselor for Arabella Roach
[2020-03-29] MEDS: ziprasidone hcl 20 mg Capsule PO ×2 (05:51→18:09)
[2020-03-29 06:00] VITALS: BP 125/84; PULSE 64; RESP 18; TEMP 36.4; O2SAT 94
[2020-03-29 14:00] VITALS: BP 126/80; PULSE 149; RESP 18; TEMP 36.3; O2SAT 96
--- NOTE | 2020-03-29 16:15 | PM.NPN ---
Subjective NPU Subjective: Interval history: Bryant presents today continuing to be very resistant to treatment and being here. He was served papers for his 21-day hold hearing. He continues to lack insight and continues to focus on a vision that just leaving here is the answer without focusing on what do you do then other than believe things will be magically better. He is resistant to all medication and there was a report that he was released talking about not taking his medication anymore even though we discontinued the Abilify. Mental Status Exam MSE Comments: This is a well-nourished well-developed white male in hospital scrubs with limited grooming and eye contact. No abnormal movements except for psychomotor retardation. Semicooperative with exam in mild to moderate distress. Speech was slightly more spontaneous and decreased rate and volume. Mood described as I feel worse here, affect odd. Thought process mostly organized with some slight improvement in thought blocking. Thought content: Patient denied suicidal or homicidal ideation, there were no delusions reported but some paranoia noted, he denies any auditory or visual hallucinations but at times did appear to be attending to internal stimuli. Attention and concentration were limited and memory was also somewhat limited but none were formally tested. He is alert and oriented x3. Insight and judgment are impaired and impulse control is impaired. Vitals/I&O/Wt Last Vital Signs Temp 97.6 F 03/29/20 06:00 Pulse 64 03/29/20 06:00 Resp 18 03/29/20 06:00 BP 125/84 03/29/20 06:00 Pulse Ox 94 03/29/20 06:00 Data NPU : 03/22/20 22:30 03/22/20 22:30 A&P Additional A&P Information (1) Cannabis abuse: (2) Depression: (3) Acute psychosis: This is a 29-year-old white male with a long history of psychotic symptoms as well as depression and active addiction with some question of recent methamphetamine use who presents with thought disorder. 1. Continue current medication. 2. Continue to the minute checks for safety. 3. Encourage individual, group and milieu therapies. 4. Encourage sober living treatment after discharge at the highest level of care to which he is willing to commit. 5. 21-day hold hearing 03/31/2020 at 3 PM Involuntary Hold Information 96 Hour Hold: 96 Hour Involuntary Admission: Yes 96 Hour Hold Ending Date: 03/26/20 96 Hour Hold Ending Time: 22:34 Attestations NPU Medical Necessity Statement*: Inpatient hospitalization is medically necessary and the clinically appropriate intervention at this time. We will monitor medications and make changes as indicated. Likely length of stay 4-6 days. Await 21-day hold hearing. Coding Level of Care Code Acute Dredge Mate for Arabella Roach
[2020-03-29 21:52] VITALS: BP 105/63; PULSE 76; RESP 18; TEMP 37.1; O2SAT 96
--- NOTE | 2020-03-29 23:41 | PC.NURSE ---
PM assessment Pt v/s are WNL, Heart/Lung sounds are normal. Pt is resting in his room, curled up in his covers, staring at the wall in the dark. Pt denies pain, denies SI/HI, denies AH/VH at this time. Pt reports racing thoughts that never stop, refused medication. Pt reports sleep that is not restful. Pt does not want to speak to anyone on the phone tonight. He requests to be left alone to try to sleep. Pt refused to come to dayroom for snack. Staff went to room with patient, he did eat a snack at that time. Pt is less interactive this evening with nurse. His affect is flat, tearful at times, but depressed. He returned to his bed and rolled over to the wall. Pt stated, I don't like how this medicine makes me feel, it makes me mad that I have to take it. Patient confided that he had a hard time at visitation with his girlfriend. Pt seems to be overwhelmed when asked to elaborate on his feelings. Pt has remained in his room all evening. Pt refused a shower this evening but did say he may take one in the morning. Nurse has not seen improvement in this patient's condition.
[2020-03-30 06:00] VITALS: BP 114/78; PULSE 69; RESP 16; TEMP 36.6; O2SAT 98
--- NOTE | 2020-03-30 08:03 | PC.NURSE ---
Patient refused Geodon. Patients states this med is causing night tremors and fatigue. I taught patient about medication and encouraged patient to speak with physician. Patient voiced understanding. Med wasted with schch. JANIYA, DAISHA
[2020-03-30 13:44] VITALS: BP 128/83; PULSE 84; RESP 20; TEMP 36.8; O2SAT 97
--- NOTE | 2020-03-30 16:43 | P.PN_ITS ---
Subjective NPU Subjective: Interval history: Bryant presents today without much changes. He has had moments of medication refusal and continues to be in his stagnant lot state of resistance to treatment. His staff electronic warfare officer came in today and he received there. She was that he this concerned he is getting in trouble and that is why he is here. She is another source the reports that he is c ategorically different than she has been accustomed to in previous interactions and reports that she encouraged him to be compliant/adherent with medication and tried to reassure him that getting mental health treatment is not going to cause his probation to be extended. I reviewed with him the fact he has a 21-day hold hearing tomorrow. Mental Status Exam MSE Comments: This is a well-nourished well-developed white male in hospital scrubs with limited grooming and eye contact. No abnormal movements except for psychomotor retardation. Semicooperative with exam in mild to moderate distress. Speech was slightly more spontaneous and decreased rate and volume. Mood described as I am fine but I just want to leave, affect odd. Thought process mostly organized with some slight improvement in thought blocking. Thought content: Patient denied suicidal or homicidal ideation, there were no delusions reported but some paranoia noted, he denies any auditory or visual hallucinations but at times did appear to be attending to internal stimuli. Attention and concentration were limited and memory was also somewhat limited but none were formally tested. He is alert and oriented x3. Insight and judgment are impaired and impulse control is impaired. Vitals/I&O/Wt Last Vital Signs Temp 98.2 F 03/30/20 19:42 Pulse 73 03/30/20 19:42 Resp 16 03/30/20 19:42 BP 138/87 03/30/20 19:42 Pulse Ox 97 03/30/20 19:42 Data NPU : 03/22/20 22:30 03/22/20 22:30 A&P Additional A&P Information (1) Cannabis abuse: (2) Depression: (3) Acute psychosis: This is a 29-year-old white male with a long history of psychotic symptoms as well as depression and active addiction with some question of recent methamphetamine use who presents with thought disorder. 1. Continue current medication. We will increase Geodon to 40 mg p.o. twice daily tomorrow with meals and hope he takes the medication. 2. Continue to the minute checks for safety. 3. Encourage individual, group and milieu therapies. 4. Encourage sober living treatment after discharge at the highest level of care to which he is willing to commit. 5. 21-day hold hearing tomorrow at 3 PM Involuntary Hold Information 96 Hour Hold: 96 Hour Involuntary Admission: Yes 96 Hour Hold Ending Date: 03/26/20 96 Hour Hold Ending Time: 22:34 Attestations NPU Medical Necessity Statement*: Inpatient hospitalization is medically necessary and the clinically appropriate intervention at this time. We will monitor medications and make changes as indicated. Likely length of stay 4-6 days. Await 21-day hold hearing. Coding Level of Care Code Acute Materials Supervisor for Arabella Roach
--- NOTE | 2020-03-30 17:01 | PC.NURSE ---
Refused Medication: Patient refused to take his scheduled medication (Geodon). Patient educated on the importance of taking the medication as prescribed. He voiced understanding and states he does not want to take it. JANIYA, DAISHA
[2020-03-30 19:42] VITALS: BP 138/87; PULSE 73; RESP 16; TEMP 36.8; O2SAT 97
[2020-03-31 06:00] VITALS: BP 146/92; PULSE 99; RESP 20; TEMP 36.8; O2SAT 96
[2020-03-31] MEDS: ziprasidone hcl 20 mg Capsule PO ×2 (06:00→06:43)
[2020-03-31 14:00] VITALS: BP 128/83; PULSE 88; RESP 16; TEMP 36.9; O2SAT 98
--- NOTE | 2020-03-31 14:12 | P.PN_ITS ---
Subjective NPU Subjective: Interval history: Distended today endorsing he understood the circumstances of the 21-day hold hearing. I explained to him what I would say if he were to attend, though unclear he would be going. We discussed the behavioral concerns that we continue to have and the necessary changes we would like to see in his behavior to feel safe for him to discharge. He endorsed understanding but continued to have limitations in his spontaneous vocalization. We did discuss the importance of him taking the medication daily for his recovery. Mental Status Exam MSE Comments: This is a well-nourished well-developed white male in hospital scrubs with limited grooming and eye contact. No abnormal movements except for psychomotor retardation. Semicooperative with exam in mild to moderate distress. Speech was slightly more spontaneous and decreased rate and volume. Mood described as okay, affect odd. Thought process mostly organized with some slight improvement in thought blocking. Thought content: Patient denied suicidal or homicidal ideation, there were no delusions reported but some paranoia noted, he denies any auditory or visual hallucinations but at times did appear to be attending to internal stimuli. Attention and concentration were limited and memory was also somewhat limited but none were formally tested. He is alert and oriented x3. Insight and judgment are impaired and impulse control is impaired. Vitals/I&O/Wt Last Vital Signs Temp 97.2 F L 03/31/20 19:44 Pulse 75 03/31/20 19:44 Resp 18 03/31/20 19:44 BP 113/75 03/31/20 19:44 Pulse Ox 98 03/31/20 19:44 03/31/20 03/31/20 03/31/20 06:59 14:59 22:59 Intake Total 520 / 520 240 / 760 Balance 520 / 520 240 / 760 Data NPU : 03/22/20 22:30 03/22/20 22:30 A&P Additional A&P Information (1) Cannabis abuse: (2) Depression: (3) Acute psychosis: This is a 29-year-old white male with a long history of psychotic symptoms as well as depression and active addiction with some question of recent methamphetamine use who presents with thought disorder. 1. Continue current medication. If tolerated hold is granted we will do IM Geodon for p.o. refusal. 2. Continue to the minute checks for safety. 3. Encourage individual, group and milieu therapies. 4. Encourage sober living treatment after discharge at the highest level of care to which he is willing to commit. 5. 21-day hold hearing tomorrow at 3 PM Involuntary Hold Information 96 Hour Hold: 96 Hour Involuntary Admission: Yes 96 Hour Hold Ending Date: 03/26/20 96 Hour Hold Ending Time: 22:34 Attestations NPU Medical Necessity Statement*: Inpatient hospitalization is medically necessary and the clinically appropriate intervention at this time. We will monitor medications and make changes as indicated. Likely length of stay 4-6 days. Await 21-day hold hearing. Coding Level of Care Code Acute Ring Making Machine Operator for Arabella Roach
[2020-03-31] MEDS: ziprasidone hcl 20 mg Capsule 40 MG PO (17:00)
[2020-03-31 19:44] VITALS: BP 113/75; PULSE 75; RESP 18; TEMP 36.2; O2SAT 98
--- NOTE | 2020-04-01 01:20 | PC.NURSE ---
PM assessment @1900 pt is out of his room talking on the patient phone near the nurses desk. Pt is smilling and having a good conversation with his girlfriend. Pt is eating better, reports sleeping better, denies pain. pt denies AH, VH, Denies SI/HI at this time. Pt stated, my goal is to go home on the weekend to my family. He is in better spirits. Pt is clean, affect is bright, conversation is no longer flat/depressed. Pt is much improved from time of admit to the unit. Will continue to monitor patient for any s/s of distress and improvement in condition.
[2020-04-01 06:00] VITALS: BP 107/77; PULSE 67; RESP 18; TEMP 36.9; O2SAT 93
[2020-04-01] MEDS: ziprasidone hcl 20 mg Capsule 40 MG PO (06:14)
[2020-04-01 14:00] VITALS: BP 147/76; PULSE 96; RESP 18; TEMP 36.6; O2SAT 95
--- NOTE | 2020-04-01 14:41 | PM.NPN ---
Subjective NPU Subjective: Interval history: Patient denies any interval complaints, continues to have paucity of speech. Denies any interval depressive symptoms, denies any interval psychotic symptoms although he does report having some paranoia and concerns about repercussions of somebody doing something to him because he was in shelter which he does not provide the details. Denies any interval suicidal ideation or thoughts of self-harm. Reports that he did not sleep well, does not feel rested States that his appetite is been fairly good, does not recall what he had for lunch a couple hours before Reports being compliant with his medication and denies any medication side effects Per nurse report, continues to have limited speech although some improvement, no interval behavioral disturbances. Mental Status Exam MSE Comments: Appears stated age, somewhat disheveled, initially lying down before interview, set up, poor eye contact but cooperative with interview Psychomotor activity is somewhat decreased, no agitation Speech is low volume, frequent pauses, requires prompting, not pressured I am okay, constricted affect, not labile Alert and oriented to person, place, time Memory and concentration appear to be fair at best per interview Thought process, linear but brief, no flight of ideas, no looseness of associations Thought content, some thought blocking, no stated delusions, does not appear to be attending to any internal stimuli, no suicidal or homicidal ideation Insight and judgment appear to be fair Vitals/I&O/Wt Last Vital Signs Temp 97.9 F 04/01/20 14:00 Pulse 96 04/01/20 14:00 Resp 18 04/01/20 14:00 BP 147/76 04/01/20 14:00 Pulse Ox 95 04/01/20 14:00 03/31/20 04/01/20 04/01/20 22:59 06:59 14:59 Intake Total 240 / 760 Balance 240 / 760 Data NPU : 03/22/20 22:30 03/22/20 22:30 A&P Assessment and plan (1) Depression: Status: Acute (2) Cannabis abuse: Status: Acute (3) Acute psychosis: Continues to demonstrate psychosis, thought blocking, paucity of speech CONTINUE current medication, continue to monitor Status: Acute Involuntary Hold Information 96 Hour Hold: 96 Hour Involuntary Admission: Yes 96 Hour Hold Ending Date: 03/26/20 96 Hour Hold Ending Time: 22:34 Attestations NPU Medical Necessity Statement*: Continues to have ongoing psychotic symptoms requiring medication stabilization Coding Level of Care Code Acute Electroencephalographic Technician for g Fwd Diagnoses Depression F32.9 Cannabis abuse F12.10 Acute psychosis F23
[2020-04-01] MEDS: ziprasidone hcl 60 mg Capsule PO (16:50)
[2020-04-01 20:06] VITALS: BP 132/83; PULSE 76; RESP 17; TEMP 36.9; O2SAT 92
[2020-04-02 06:00] VITALS: BP 98/56; PULSE 64; RESP 15; TEMP 36.9; O2SAT 96
[2020-04-02] MEDS: ziprasidone hcl 60 mg Capsule PO ×2 (06:32→16:55)
[2020-04-02 13:26] VITALS: BP 117/67; PULSE 86; RESP 20; TEMP 36.6; O2SAT 93
--- NOTE | 2020-04-02 16:12 | PM.NPN ---
Subjective NPU Subjective: Interval history: Continues to report improvement, reports thinking more clearly Denies any auditory or visual destinations, denies any suspiciousness or paranoia Reports minimal depressive symptoms, denies any interval suicidal ideation or thoughts about self-harm Reports being compliant with his medication and denies any medication side effects Reports improving appetite States that he slept better, feels rested No reported interval behavioral disturbances Mental Status Exam MSE Comments: Appears stated age, unshaven, sitting at a table in the dining area with his girlfriend sitting next to him, calm, cooperative, interactive, good eye contact Psychomotor activity is neither increased nor decreased, no agitation Speech is somewhat slow, normal volume, spontaneous, fair articulation, not pressured I am feeling better, somewhat constricted affect although smiles occasionally and appropriately, not labile Alert and oriented to person, place, time, situation Memory and concentration appear to be intact per interview Thought process, linear but brief, no flight of ideas, no looseness of association Thought content, no delusions, no hallucinations, no suicidal homicidal ideation Insight and judgment appear to be intact Vitals/I&O/Wt Last Vital Signs Temp 97.9 F 04/02/20 13:26 Pulse 86 04/02/20 13:26 Resp 20 H 04/02/20 13:26 BP 117/67 04/02/20 13:26 Pulse Ox 93 04/02/20 13:26 Physical Exam Narrative: EXAM NARRATIVE: No change Data NPU : 03/22/20 22:30 03/22/20 22:30 A&P Assessment and plan (1) Acute psychosis: Status: Acute (2) Depression: Status: Acute (3) Cannabis abuse: Status: Acute Additional A&P Information Continued improvement with organization of thoughts, denies any interval psychotic symptoms CONTINUE current medication, continue to monitor Anticipate discharge tomorrow Involuntary Hold Information 96 Hour Hold: 96 Hour Involuntary Admission: Yes 96 Hour Hold Ending Date: 03/26/20 96 Hour Hold Ending Time: 22:34 Attestations NPU Medical Necessity Statement*: Continued improvement with psychotic symptoms, medication stabilization and coordination for outpatient follow-up Coding Level of Care Code Acute Training Director for Arabella Roach Diagnoses Acute psychosis F23 Depression F32.9 Cannabis abuse F12.10
[2020-04-02 20:07] VITALS: BP 153/72; PULSE 62; RESP 16; TEMP 36.9; O2SAT 93
[2020-04-03 06:00] VITALS: BP 115/69; PULSE 56; RESP 18; TEMP 36.9; O2SAT 99
[2020-04-03] MEDS: ziprasidone hcl 60 mg Capsule PO (06:28)
--- NOTE | 2020-04-03 08:49 | PM.NDC ---
Diagnoses at Discharge Discharge Diagnosis (1) Acute psychosis: Status: Acute (2) Depression: Status: Acute (3) Cannabis abuse: Status: Acute Reason for Visit Reason for Visit: Acute psychosis, depression, suicidal ideation Hospital Course Hospital Course Patient presented to the emergency department with bizarre behavior, ongoing psychotic symptoms in the context of ongoing cannabis abuse although has past history of methamphetamine abuse but denies recent use, was also presenting with significant neurovegetative signs, depression, decreased appetite and reported suicidal ideation. Patient continued to have bizarre behaviors on the unit and was internally preoccupied with minimal interaction with staff oftentimes thought blocking, limited speech. Patient was started on Geodon and titrated up to Geodon 60 mg twice daily with good effect with improved mood and improved interaction and daily function. Patient reported improvement of his depressive symptoms and denied any suicidal ideation. Patient's communication with others to include a visit from his girlfriend demonstrated improvement in social interaction; he was also able to communicate his understanding of post discharge treatment needs. Patient participated in unit milieu in a limited fashion but did not demonstrate any behavioral disturbances. At the time of discharge, patient was not suicidal and did not appear to pose an imminent threat of harm to self or others. Low to moderate risk of harm to self given no current suicidal ideation and no reported psychotic symptoms although risk may continue to be elevated if he continues to abuse substances or is noncompliant with his medication or medication management follow-up leading to unexpected, impulsive behavior. Risk mitigation included psychiatric hospitalization for observation and treatment with psychiatric medication as well as coordination for post discharge medication management and recommendation to abstain from the use of substances and alcohol. Patient was able to communicate his understanding of the need to abstain from the use of substances and alcohol as well as the need for compliance with his medication, medication management in order to further mitigate his risk of harm to self and others. Involuntary Hold Information 96 Hour Hold: 96 Hour Involuntary Admission: Yes 96 Hour Hold Ending Date: 03/26/20 96 Hour Hold Ending Time: 22:34 Mental Status Exam MSE Comments: Appears stated age, unshaven but otherwise appropriately groomed and dressed, calm, cooperative, interactive, good eye contact Psychomotor activity is neither increased nor decreased, no agitation Speech is soft volume, regular rate, spontaneous, fair articulation, not pressured I feel okay, somewhat constricted affect, not labile Alert and oriented to person, place, time, situation Memory and concentration appear to be fair to intact per interview Thought process, linear but brief, no flight of ideas, no looseness of association Thought content, no delusions, no hallucinations, no suicidal or homicidal ideation Insight and judgment appear to be fair to intact Discharge Data Vitals: Last Vital Signs Temp 98.4 F 04/03/20 06:00 Pulse 56 L 04/03/20 06:00 Resp 18 04/03/20 06:00 BP 115/69 04/03/20 06:00 Pulse Ox 99 04/03/20 06:00 Discharge Plan Discharge Patient Disposition: Home Condition: Stable Prescriptions: New ziprasidone HCl 60 mg Capsule 60 mg PO 0700,1700 Qty: 60 RF: 0 Discharge Orders: Discharge Order (Routine); Ordered 04/03/20 Ordered By: Darryl Arshad Referrals: [facility] [Outside] (Intake information was completed while you were in the hospital. Staff will contact you about an appointment once it has been processed.) Meghna Esquivel DO [Primary Care Provider] - Discharge Diet: Regular Discharge Activity: Resume usual activity Discharge Attestations NPU Time Spent in Discharge Care*: greater than 30 min Status at Discharge: Cognitive status at discharge: cognitively intact, Behavioral status at discharge: cooperative, Functional status at discharge: independent ambulation Overall status at discharge: patient is back to baseline Coding Level of Care Code Acute Senior Software Architect for Arabella Roach Diagnoses Acute psychosis F23 Depression F32.9 Cannabis abuse F12.10
[2020-04-03 09:11] VITALS: BP 115/69; PULSE 56; RESP 18; TEMP 36.9; O2SAT 99
== END 2020-04-03 10:11 | disposition home or self-care (01) | DRG 885 ==
LOC: ER 22:58 → NP 23:32
PROVIDERS: Admitting Provider Psychiatry & Neurology Psychiatry; Emergency Provider Emergency Medicine; PCP Family Medicine; Visit Provider Psychiatry & Neurology Psychiatry
DX: F23 Brief psychotic disorder (principal); R45.851 Suicidal ideations; F32.9 Major depressive disorder, single episode, unspecified; F12.10 Cannabis abuse, uncomplicated; F17.210 Nicotine dependence, cigarettes, uncomplicated
CPT/HCPCS: 12345; 80053; 80306; 80307; 81001; 85025; 99284